=== PATIENT | female | born 1935 | race Caucasian/White ===

== ENCOUNTER 2018-04-09 02:07 | Day surgery (SDC) | payer MEDICARE, OTHER | END 2018-04-09 22:46 | disposition home or self-care (01) | LOC: MOI MAM 02:07 | PROC: 0HBT3ZX Excision of Right Breast, Percutaneous Approach, Diagnostic (ICD-10-PCS; principal; 2018-04-09) | DX: C50.911 Malignant neoplasm of unspecified site of right female breast (principal) | CPT/HCPCS: 19083; 77065; 88305; 88342; 88360; A4648; G0279 ==

== ENCOUNTER 2018-05-24 08:09 | Day surgery (SDC) | payer MEDICARE, OTHER ==
[2018-05-25] MEDS ORDERED: LIVALO4 MG PO (13:16)
[2018-05-25] MEDS ORDERED: GABA600 PO (13:16)
[2018-05-25] MEDS ORDERED: OXYB5ER PO (13:17)
[2018-05-25] MEDS ORDERED: Omeprazole20 M1 PO (13:17)
[2018-05-25] MEDS ORDERED: Triamterene W/1 EACH PO (13:18)
[2018-05-25] MEDS ORDERED: MIRALAX17 GM PO (13:18)
== END 2018-05-24 23:30 | disposition home or self-care (01) ==
LOC: MOI MAM 08:09
DX: C50.919 Malignant neoplasm of unspecified site of unspecified female breast (principal); C50.911 Malignant neoplasm of unspecified site of right female breast
CPT/HCPCS: 19285; 77065

== ENCOUNTER 2018-06-01 08:08 | Day surgery (SDC) | payer MEDICARE, OTHER ==
[~2018-06-01] VITALS: Ht 154.9 cm; Wt 73.5 kg
[~2018-06-01 08:08] MED LIST: GABA600 PO; LIVALO4 MG PO; MIRALAX17 GM PO; OXYB5ER PO; Omeprazole20 M1 PO; Triamterene W/1 EACH PO
== END 2018-06-01 14:08 | disposition home or self-care (01) ==
LOC: ORSCMMR 08:08 → NM 08:08 → ORSCMMR 08:09 → NM 08:09 → ORSCMMR 14:08
PROVIDERS: Surgery
PROC: 0HBT0ZZ Excision of Right Breast, Open Approach (ICD-10-PCS; principal; 2018-06-01 10:30)
PROC: 07B50ZX Excision of Right Axillary Lymphatic, Open Approach, Diagnostic (ICD-10-PCS; principal; 2018-06-01 10:30)
DX: C50.411 Malignant neoplasm of upper-outer quadrant of right female breast (principal); Z17.0 Estrogen receptor positive status [ER+]; I10 Essential (primary) hypertension; E21.3 Hyperparathyroidism, unspecified; E78.5 Hyperlipidemia, unspecified; Z79.899 Other long term (current) drug therapy; Z87.891 Personal history of nicotine dependence
CPT/HCPCS: 38792; 76098; 88307; 88342; 88360; A9520; J0690; J1100; J1885; J2250; J2405; J3010; J7120; Q9968